=== PATIENT | female | born 1990 | race Caucasian/White ===

== ENCOUNTER 2022-07-30 11:22 | Outpatient (CLI) | payer OTHER, SELFPAY | END 2022-07-30 11:23 | disposition home or self-care (01) | LOC: NFLDREF 08-02 14:05 | PROVIDERS: Visit Provider Advanced Practice Midwife | DX: Z34.91 Encounter for supervision of normal pregnancy, unspecified, first trimester (principal) | CPT/HCPCS: 86592; 86703; 86762; 86787; 86803; 86850; 86900; 86901; 87086; 87340 ==

== ENCOUNTER 2022-10-14 13:06 | Outpatient (CLI) | payer OTHER, SELFPAY ==
--- NOTE | 2022-10-14 13:00 | CRLHL7_ITS ---
For Patients: As a result of the Century Cures Act, medical imaging exams and procedure reports are released immediately into your electronic medical record. You may view this report before your referring provider. If you have questions, please contact your health care provider. OB ULTRASOUND 10/14/2022 INDICATION: anatomy. FINDINGS: Single. Position: Vertex. Cervix: Visualized, TA, 4.0 cm. Placenta Position: Posterior, TA. Placenta tip to internal os: 8.2 cm. Umbilical cord: 3-vessel cord. Placental Insertion: Eccentric. Amniotic Fluid: 5.2 cm, SDP (>2<8cm) OBSERVED STRUCTURES: Cerebellum: 2.1 cm, 21 weeks 2 days. Cisterna Magna: 5 mm. Nuchal Fold: 4 mm. Lateral Ventricle: 6 mm. CSP: Observed. Midline Falx: Observed. Choroid Plexus: Observed. Spine: Observed. Stomach: Observed. Abdominal Cord Insertion: Observed. Urinary Bladder: Observed. Kidneys: Observed. Diaphragm: Observed. Nose/Lips: Observed. Orbital view: Observed. Profile: Observed. Upper/Lower Extremities: Observed. Hands/Feet: Observed. 4 Chamber Heart: Observed. LVOT/RVOT/3VV: Observed. Biometry: BPD: 4.9 cm. 21w, 0d, 85 percent. HC: 18.2 cm. 20w, 4d, 69 percent. AC: 15.3 cm. 20w, 3d, 60 percent. FL: 3.2 cm. 19w, 6d, 35 percent. FL/AC ratio: 21 percent. HC/AC ratio: 1.2. EFW: 340 g. Weight: 0 lbs, 12 oz. age by this US: 20w, 4d. CHANCE by this US: 02/27/2023. Percentile by CHANCE: 60 percent. IMPRESSION: Single live intrauterine gestation with no gross anomalies visualized. Brielle Archer M.D. Diagnostic/Breast Radiologist [email or web address] CLAUDIA/roel / DW/Dictated by: Brielle Archer MD @ 10/17/2022 7:19:00 AM DW/Dictated by: Brielle Archer MD @ 10/17/2022 7:19:00 AM (Electronically Signed)
== END 2022-10-14 13:07 | disposition home or self-care (01) ==
LOC: US 13:07
PROVIDERS: Visit Provider Advanced Practice Midwife
DX: Z34.92 Encounter for supervision of normal pregnancy, unspecified, second trimester (principal); Z3A.20 20 weeks gestation of pregnancy
CPT/HCPCS: 76805

== ENCOUNTER 2022-12-14 10:01 | Outpatient (CLI) | payer OTHER, SELFPAY | END 2022-12-14 10:02 | disposition home or self-care (01) | PROVIDERS: Visit Provider Advanced Practice Midwife | DX: Z34.92 Encounter for supervision of normal pregnancy, unspecified, second trimester (principal) | CPT/HCPCS: 86592 ==

== ENCOUNTER 2022-12-29 08:22 | Outpatient (CLI) | payer OTHER, SELFPAY | END 2022-12-29 08:23 | disposition home or self-care (01) | LOC: NFLDREF 01-01 09:35 | PROVIDERS: Visit Provider Advanced Practice Midwife | DX: O99.810 Abnormal glucose complicating pregnancy (principal) | CPT/HCPCS: 82951; 82952 ==

== ENCOUNTER 2023-02-03 15:10 | Outpatient (CLI) | payer OTHER, SELFPAY ==
[2023-02-04 15:51] LABS: Strep B DNA Probe Negative (Negative)
[2023-02-04 15:52] LABS: Strep B Susceptibility Needed? No
== END 2023-02-03 15:11 | disposition home or self-care (01) ==
LOC: NFLDREF 15:10
PROVIDERS: Visit Provider Advanced Practice Midwife
DX: Z34.93 Encounter for supervision of normal pregnancy, unspecified, third trimester (principal)
CPT/HCPCS: 87081; 87653

== ENCOUNTER 2023-03-10 12:59 | Outpatient (CLI) | payer OTHER, SELFPAY ==
--- NOTE | 2023-03-10 13:00 | CRLHL7_ITS ---
For Patients: As a result of the Century Cures Act, medical imaging exams and procedure reports are released immediately into your electronic medical record. You may view this report before your referring provider. If you have questions, please contact your health care provider. INDICATION: Post-dates. Forty-one weeks 0 days. Technique: Grayscale and Doppler images from biophysical profile submitted. FINDINGS: breathing movements: 2 Gross body movements: 2 tone: 2 Amniotic fluid volume: 2 Total: 8/8 Amniotic Fluid Index: 10.6 cm. Heart rate is 165 beats per minute. Vertex presentation. IMPRESSION: Normal biophysical profile score of 8/8. Dictated by Mike Arango MD @ 03/10/2023 3:03:12 PM (Electronically Signed)
[2023-03-13 11:25] VITALS: RESP 18; TEMP 36.6
== END 2023-03-10 13:00 | disposition home or self-care (01) ==
LOC: US 13:00
PROVIDERS: Visit Provider Advanced Practice Midwife
DX: O48.0 Post-term pregnancy (principal)
CPT/HCPCS: 76819

== ENCOUNTER 2023-03-13 10:27 | Outpatient (CLI) | payer OTHER, SELFPAY ==
[2023-03-13 10:43] VITALS: BP 133/79; PULSE 84
[2023-03-13 10:46] VITALS: PULSE 87; O2SAT 97
[2023-03-13 10:51] VITALS: PULSE 89; O2SAT 97
[2023-03-13 10:56] VITALS: PULSE 80; O2SAT 98
[2023-03-13 11:01] VITALS: PULSE 91; O2SAT 97
[2023-03-13 11:06] VITALS: PULSE 77; O2SAT 98
[2023-03-13 11:29] LABS: Amnisure Rom* Negative
--- NOTE | 2023-03-13 12:38 | PC.OBNST ---
NST Note NST Note Start: 03/13/23 12:37 Freq: ONCE Status: Active Protocol: Document 03/13/23 11:37 RADHA (Rec: 03/13/23 12:38 [email or web address] [id number]) NST Note 2 Para (# of births) 1 EDC 03/03/23 Gestational Age In Weeks & Days 41 Weeks & 3 Days Patient Presented with Complaint(s) of Leaking fluid Reactive Yes Appropriate for Gestational Age Yes RN Norma Chatman RN Date 03/13/23 Reactive Yes Appropriate for Gestational Age Yes KHADAR Marti RN Date 03/13/23 OB NST charge Yes Complete NST Note via Write Note Yes The provider's electronic signature indicates the NST is reactive/appropriate for gestational age. *Note to provider: If an addendum is required, open the patient's chart and click on the note under the Nurse/Allied Health tab.
== END 2023-03-13 11:45 | disposition home or self-care (01) ==
LOC: OB OUT 10:27 → OB 10:27
PROVIDERS: Visit Provider Advanced Practice Midwife
DX: O47.1 False labor at or after 37 completed weeks of gestation (principal); Z3A.41 41 weeks gestation of pregnancy
CPT/HCPCS: 59025; 84112; G0463

== ENCOUNTER 2023-03-15 23:16 | Inpatient (IN) | payer OTHER, SELFPAY ==
[2023-03-15 23:24] VITALS: BMI 28.4
[2023-03-15 23:25] VITALS: BP 132/90; PULSE 93
[2023-03-15 23:29] VITALS: PULSE 69; TEMP 37.1; O2SAT 98
[2023-03-16] VITALS (19 sets, daily range): BP systolic 113–190; BP diastolic 64–104; PULSE 80–113; RESP 16–18; TEMP 36.4–37.2; O2SAT 96–98
[2023-03-16] MEDS: OXYTOCIN 10 UNIT/ML INJ IM (00:39)
--- NOTE | 2023-03-16 00:59 | P.LDBA_ITS ---
Subjective History of Present Illness Date Seen: 03/16/23 Specific Issues/Plans : Rodney Alba gender H&P done by Vivien Davis CNM on 02/10/23 1. Extended family hx of muscular dystropy for both Brisa and her . They have not personally been tested but believe their parents have and are not carriers. 2. Abnormal 1 hr (142). 3 hr ordered:passed, all values WNL 3. Hx of anxiety previous child in NICU for blood sugar problems pt feels she probably had undiagnosed PP anxiety from this *Pap PP (due 04/17) COVID: first series + Booster 01/26/2023 Flu: 12/14/22 TDAP:12/29/22 RSV: 01/12/2023 32 week PHQ/NICKY: 01/12/2023 Comments: Brisa is being admitted to Labor and Delivery for active labor. She is a 32 year old G 2 P 1 at?41.6 weeks gestation. Her full history and physical was dictated by Vivien Davis on 02/10/23. Please see this for details. She was seen in the office today and had a membrane sweep done. Contractions started around 1500. She states SROM, clear fluid at 2200, at which point contractions became much more intense. ? She is coping well with labor pain/contractions. Her partner is with her for support. She is planning an unmedicated , open to waterbirth. OB - Problem Based A/P Additional Plan (1) Supervision of other normal : Status: Acute (2) SROM (spontaneous rupture of membranes): Status: Acute (3) Active labor at term: Status: Acute Plan Assessment:?? at 41.6 weeks gestation?? GBS negative Patient is coping well with challenges of labor.?? Labor type: Spontaneous, Active labor? complicated by: -abnormal 1 hr GCT, passed 3 hr -Hx of PP anxiety Plan:?? * Admit to L & D? * IV access: not needed at this time * Monitoring: intermittent per protocol * Candidate for analgesia of choice.? Planning non pharmacologic methods for pain management * Considering waterbirth.? Consent signed and Hep C negative * Expectant management at this time * Anticipate progress to NVD Delivery/Labor/Induction Plan Plan: expectant management OB Exam Physical Exam Vital signs: Temp Pulse BP Pulse Ox 98.7 F 113 H 142/97 H 98 03/15/23 23:29 03/16/23 00:49 03/16/23 00:49 03/15/23 23:29 Narrative: VSS, afebrile? General Appearance:? Calm, cooperative.? No acute distress.? Normal affect.? Psychiatric Exam: Alert and oriented, appropriate affect? HEENT: normocephalic, neck supple, full ROM? Respiratory:? Symmetrical chest wall movement.? Normal respiratory effort.? Abdomen: Gravid, non tender? Extremities:? normal and trace edema? Skin: warm, dry.??? Ctx:? Q 1-2 min apart.? Moderate?- Strong? FHTs:? Baseline: 125.? Variability: moderate.?? Accels: present.??? Decels:? none.? SVE: deferred initial on admit per pt request. Shortly after noted to be complete. ? Membranes: ? SROM,? clear fluid, X 2 hours? Detailed Labor and Delivery Exam Patient Gravid: Yes
--- NOTE | 2023-03-16 00:59 | W.PM.OBVAGDE ---
OB Procedure Vag Delivery Mother Details Mother Details: The patient is a 32 year-old, 2, now Para 2, admitted on 03/15/23 at 41.5 Days gestation. Delivery occurred 03/16/23 at 0036. : 2 Para: 2 Weeks Gestation: 41.6 Admission Date: 03/15/23 Additional Details Amniotic Membrane Status: SROM Amniotic Membrane Rupture Date: 03/15/23 Amniotic Membrane Rupture Time: 22:00 Amniotic Membrane Fluid Description: Clear Analgesia/Anesthesia Type: None Waterbirth: No Pitcoin: No (PP only for AMTSL) Intrapartal Events: None Labor Onset: 22:00 Complete: 00:01 Pushin:01 Heart: heart tones during second stage were WNL per doppler by service station console operator Details Delivery Date: 03/16/23 Delivery Time: 00:36 Route of delivery: Gender: Male Viability: Alive; Heart Rate Present Position at Delivery: OA Delivery Details: As CNM arrivied, pt was noted to be complete and spontaneously pushing w/ ctx. She continued to push in good control on hands and knees leaning on the bed. Declined to move to tub for a waterbirth. ? Spontaneous vaginal delivery at 0036 of?a viable?male infant.??Delivered in vertex OA position.??Right hand noted to be up around the neck after delivery of head. Shoulders delivered easily.? Spontaneous cry noted.??Infant placed on maternal abdomen.??Cord?was clamped and cut after a 5+ minute delay.? Shoulder dystocia: no? Nuchal cord: no? Meconium stained?fluid: no? Water : no? ? ? 8 at 1 minute and 9 at 5 minutes.? ? Placenta delivered spontaneously and?complete?at 0048 with a?3 vessel?cord.?? Bleeding controlled with fundal massage and?pitocin?for AMTSL.? ? Mother and were stable after delivery.? ? Lacerations:? ??1st degree laceration, not bleeding, not repaired? ? Bleeding?post delivery?was: minimal. ?The fundas was firm to palpation.? Blood loss: 75?mL.? Blood loss measurement type: QBL? ? ? Sponge,?lap?and needles counts are correct.? Mother and infant were stable after delivery.? 1 Minute Interval Total Score: 8 5 Minute Interval Total Score: 9 Additional Details Shoulder Dystocia: No Placenta Delivery Time: 00:48 Placental Delivery Description: Spontaneous Procedure Done: Global Blood Loss: 75 Laceration: Perineal - 1st Degree (not repaired) Blood Loss Measurement Type: QBL Bakri Used: No Sponge/Need Count Correct: Yes Cord Vessel Description: 3 Vessels Event Summary Status: Mother and were stable after delivery. Disposition: floor
[2023-03-16] MEDS: IBUPROFEN 600 MG TABLET PO ×4 (01:55→21:40)
[2023-03-16] MEDS: ACETAMINOPHEN 500 MG TABLET 1000 MG PO ×3 (04:51→16:48)
[2023-03-16] MEDS: DOCUSATE SODIUM 100 MG CAPSULE PO (07:59)
[2023-03-17 00:24] VITALS: BP 109/71; PULSE 87; RESP 18; TEMP 36.6; O2SAT 98
[2023-03-17] MEDS: ACETAMINOPHEN 500 MG TABLET 1000 MG PO ×4 (03:01→23:13)
[2023-03-17] MEDS: IBUPROFEN 600 MG TABLET PO ×3 (04:03→17:13)
[2023-03-17 07:16] VITALS: BP 118/72; PULSE 74; RESP 16; TEMP 36.6; O2SAT 98
--- NOTE | 2023-03-17 07:21 | PM.OBPNVD1 ---
OB - PN:Subj Subjective Date Seen: 03/17/23 Narrative: Brisa is a 32 y.o. G 2 P 2 who was admitted to L & D for spontaneous onset of labor. ?She had a NVD that was uncomplicated. The patient feels well. ?The pain is well controlled with current medications. ?She has no new complaints. ?She is breast feeding and reports things are going ok. She desires to see today. the patient has done well.? Vitals have been stable.? She has remained afebrile.? Has a good appetite, is tolerating a general diet. ?She is voiding without difficulty.? She is passing gas and has not had a bowel movement.? She is ambulating and denies any dizziness.? Has small amount of rubra lochia. Problems: elevated BP without diagnosis of HTN OB - PN: Obj Exam Physical Exam: Vital signs: Temp Pulse Resp BP Pulse Ox O2 Del Method 97.9 F 87 18 109/71 98 Room Air 03/17/23 00:24 03/17/23 00:24 03/17/23 00:24 03/17/23 00:24 03/17/23 00:24 03/17/23 00:24 Narrative: GENERAL APPEARANCE:? normal affect, alert, no distress MOOD:? appropriate CHEST:? clear to auscultation HEART:? regular rate and rhythm ABDOMEN:? soft, non-tender the uterine fundus is 2 below Umbilicus, Midline and is appropriate for the stage of recovery. PERINEUM:? mild edema of the perineum, there is a Perineal Laceration,?1st degree, that is healing well. EXTREMITIES:? normal and no edema OB - PN: A/P Delivery Assessment and Plan (1) care and examination immediately after delivery: Status: Acute (2) Lactating mother: Status: Acute (3) Elevated blood pressure reading without diagnosis of hypertension: Status: Acute Plan day: 1 Plan: routine care Comments: Routine care , may see if needed Elevated BP without diagnosis of HTN Had a few initially around time of delivery, has been normotensive since
[2023-03-17] MEDS: DOCUSATE SODIUM 100 MG CAPSULE PO (09:16)
[2023-03-17] MEDS: CALCIUM CARBONATE 500 MG CHEW PO (14:09)
[2023-03-17 15:01] VITALS: BP 117/75; PULSE 87; RESP 16; TEMP 36.7; O2SAT 97
[2023-03-17 23:14] VITALS: BP 131/84; PULSE 87; RESP 14; TEMP 36.7; O2SAT 98
--- NOTE | 2023-03-18 07:32 | P.DS_ITS ---
DS: Providers Provider Date Seen: 03/18/23 Date of admission: 03/15/23 23:16 Primary care physician: Not a Local Provider Admitting Clinician: Jaimee Mark CNM Attending Physician on discharge: Jaimee Mark CNM Date of Discharge: 03/18/23 DS: Diagnosis Discharge Diagnosis (1) Elevated blood pressure reading without diagnosis of hypertension: Status: Acute (2) Lactating mother: Status: Acute (3) care following vaginal delivery: Status: Acute Exam Narrative: Exam Narrative: GENERAL APPEARANCE:? normal affect, alert, no distress? MOOD:? appropriate? CHEST:? clear to auscultation and percussion? HEART:? regular rate and rhythm? ABDOMEN:? soft, non-tender the uterine fundus is 2 cm Below Umbilicus, Midline and is appropriate for the stage of recovery. ? PERINEUM:? mild edema of the perineum, there is a 1st degree that is healing well.? EXTREMITIES:? normal and no edema? Patient has no complaints? No active bleeding?? Doing well? She is requesting discharge home.? Const: Vital Signs, click to edit/add: Vital Signs - 24 hr 03/17/23 15:01 03/17/23 23:14 Temperature 98.0 F 98.1 F Pulse Rate [Pulse Oximeter] 87 87 Respiratory Rate 16 14 Blood Pressure [Le ft Arm] 117/75 131/84 Pulse Oximetry 97 98 Oxygen Delivery Me thod Room Air Room Air Documenting provider has reviewed patient's vital signs: yes OB - DS: Summary Hospital Course Hospital Course: The patient is a 32 year old G 2 P 2 at 41.6 weeks gestation that was admitted to the Center on 03/15/23 for SROM. She had an uncomplicated vaginal delivery. She delivered a viable male . She is breast feeding which was initially difficult but is improving. the patient has done well. She is planning NFP for control. She was encouraged to wait 12-18 months between pregnancies and the risks of closely spaced pregnancies were discussed. Peripartum Data Infant delivery method: Vaginal Laceration description: Perineal - 1st Degree Episiotomy description: None complications: none [place] Infant Gender: Male Discharge Plan: Home Status at Discharge Functional status at discharge: independent ambulation Overall status at discharge: patient is progressing back to baseline Time Spent with Patient Time attestation: Total time spent providing and/or coordinating discharge services: Discharge Plan Discharge Disposition: Home, Self-Care Date of Admission: 03/15/23 23:16 Attending Provider on Discharge: Alma Arzate Primary Care Provider: Provider,Not a Local Condition: Stable Anticipated Discharge Date/Time: 03/18/23 10:00 Discharge Medications: New docusate sodium 100 mg Capsule 100 mg PO DAILY Qty: 90 0RF Rx Instructions: Take 1-2 tablets daily as needed for constipation. ibuprofen 600 mg Tablet 600 mg PO Q6H PRNQty: 30 0RF Continued prenat.vits,joy,[id number] Tablet 1 tab PO QDAY magnesium 250 mg tablet 250 mg PO QDAY Hold Instructions: patient requesy Discontinued aspirin [Adult Low Dose Aspirin] 81 mg tablet,delayed release (DR/EC) 81 mg PO QDAY Discharge Orders: Discharge Order (Routine); Ordered 03/18/23 Ordered By: Alma Arzate Patient Education: OB Vaginal/Breast Feeding Additional Instructions: Discharge instructions were reviewed with the patient including signs and symptoms of infection and home going medications.? Lifting Restrictions: 20 pounds for 6? weeks? ?? Do not drive while taking narcotic pain meds.? Off Work or School for 6 weeks.? ?? Symptoms to report to doctor:? -Bleeding that saturates more than one pad per hour? -Passing clots larger than the size of a golf ball? -Pain not relieved by prescribed medication? -Fever above 100.4 degrees Fahrenheit? -A foul vaginal odor? -Difficulty in emotions, mood and functions? -Thoughts of hurting yourself and/or ? -Painful, reddened area in your breast? -Any drainage, redness or tenderness in your IV/epidural site? -Severe headache that doesn't improve after taking medications? -Changes in vision, including temporary loss of vision, blurred vision, and/or light sensitivity? -Upper abdominal pain (usually under ribs on the right side)? -Decrease in urination or painful, frequent urinating? -Chest pain? -Shortness of breath? -Tenderness or pain with redness and/swelling in the calf(s) of your leg? ?? Follow Up in clinic in 2 and 6 weeks.? ?? consultation services are available to all mothers and babies for the first year after delivery.? To make an appointment, please call [phone].? Activity Level: Activity as Tolerated Discharge Diet: Regular Follow Up Appointments: [facility] [Provider Group] Provider,Not a Local [Primary Care Provider] - Forms: [employer] Info Instructions
[2023-03-18] MEDS: DOCUSATE SODIUM 100 MG CAPSULE PO (08:54)
[2023-03-18 09:27] VITALS: BP 122/84; PULSE 92; RESP 16; TEMP 36.8; O2SAT 97
[2023-03-18] MEDS: IBUPROFEN 600 MG TABLET PO (09:30)
== END 2023-03-18 10:35 | disposition home or self-care (01) | DRG 807 ==
LOC: OB OUT 23:16 → OB 23:17
PROVIDERS: Admitting Provider Advanced Practice Midwife; Visit Provider Advanced Practice Midwife
DX: O48.0 Post-term pregnancy (principal); Z37.0 Single live birth; O70.0 First degree perineal laceration during delivery; R03.0 Elevated blood-pressure reading, without diagnosis of hypertension; Z3A.41 41 weeks gestation of pregnancy
CPT/HCPCS: A9270; J2590

== ENCOUNTER 2023-03-20 15:44 | Emergency (ER) | payer OTHER, SELFPAY ==
[2023-03-20] VITALS (18 sets, daily range): BP systolic 126–138; BP diastolic 84–85; PULSE 71–98; RESP 18; TEMP 36.5; O2SAT 96–99; BMI 25.1
--- NOTE | 2023-03-20 15:57 | ED_ITS ---
HPI - General Adult General Date Seen: 03/20/23 Chief complaint: Hypertension Stated complaint: high blood pressure Time Seen by Provider: 03/20/23 15:50 History of Present Illness HPI narrative: This is a very pleasant generally healthy 32-year-old female presenting to the ER today with her and infant son for evaluation of high blood pressure and headache. She does not have any personal history of gestational hypertension, preeclampsia, eclampsia. She does have family members who have had the clamps yeah. Patient notes that she did have mildly elevated blood pressure readings during the last week or so and while she was in the hospital delivering her baby. Looks like blood pressure was 142/97 around the time of delivery. Follow-up blood pressures were about 131/84 on her discharge summary. She delivered on Wednesday and was discharged on Wednesday. She has been at home. She has been feeling a little bit off for the past couple of days. No definite symptoms just possible fatigue and a mild headache. She has been taking Tylenol and ibuprofen for that. Last night she had a little bit of shortness breath that came and went after a minute or so. Today she has been feeling a little bit run down. No abdominal pain. No nausea. Urination has been normal. She has a mild headache. No blurry vision. No diplopia. No focal numbness or tingling in her arms or legs. No swelling in her feet but she does have a little bit of swelling in her hands. She has mentum monitor blood pressure at home. She measured her blood pressure couple times last night and again today. It was initially 134, then 136, then 138 systolic. She called her medical device engineer, who instructed to come here to the ER. Related Data Home Medications Medication Instructions Recorded Confirmed prenat.vits,joy,[id number] 1 tab PO QDAY 07/23/22 03/20/23 magnesium 250 mg tablet 250 mg PO QDAY 02/10/23 03/20/23 Previous Rx's Medication Instructions Recorded docusate sodium 100 mg capsule 100 mg PO DAILY #90 caps 03/18/23 ibuprofen 600 mg tablet 600 mg PO Q6H PRN #30 tabs 03/18/23 Allergies Allergy/AdvReac Type Severity Reaction Status Date / Time No Known Drug Allergies Allergy Verified 03/15/23 23:21 PFSH PFS Surgical History (Updated 07/23/22 @ 09:49 by Alma Arzate CNM) [place] teeth extracted ?K08.409 - Partial loss of teeth, unspecified cause, unspecified class (ICD- 10) Hx of tonsillectomy ?Z90.89 - Acquired absence of other organs (ICD-10) Family History (Updated 07/23/22 @ 09:51 by Alma Arzate CNM) Mother Preeclampsia Skin cancer High blood pressure Father Parkinson disease Social History (Updated 07/24/22 @ 13:20 by Alma Arzate CNM) Narrative: SOCIAL 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 Partner: Rodney - project landscape architect - works remotely Lives with: and son Pets: 2 cats Abuse: Denies past, partner present Special Diet: Denies Ok with a blood transfusion: yes Culture or oriental orthodox beliefs: denies RISK FACTORS Exercise Times/wk: walks 4 times per week Depression/Anxiety: denies NICKY: 3 PHQ 9: 6 Seat Belt Use: Routinely Smoking: Denies past/present Alcohol/day: Denies while Caffeine: 1 cups coffee per day Drug Use: Denies past/present Chicken Pox: Yes as a child MRSA: Denies What is your current living situation?: I presently have a place to live Problems where you live: no known problems In the past 12 months, utilities in danger of being shut off: no In past 12 months, lack of transportation kept you from medical appts, meetings, work, or getting things needed for daily living: no In the past 12 mos, have been you worried that your food would run out before you had money to buy more?: never true In the past 12 mos, the food you bought just didn't last and you didn't have money to buy more?: never true Smoking Status: Never smoker How often does anyone, including family, friends and others, physically hurt you : never How often does anyone, including family, friends and others, insult or talk down to you: never How often does anyone, including family, friends and others, threaten you with harm: never How often does anyone, including family, friends and others, scream or curse at you: never Little interest or pleasure in doing things: not at all Feeling down, depressed, or hopeless: not at all Exam Narrative: Exam Narrative: Constitutional: Appears well-developed and well-nourished. Alert. Conversant. Non toxic. HENT: Head: Atraumatic. No depressed skull fracture, Raccoon Eyes, Peters's sign, or hemotympanum. Face normal. Nose: Nose normal. Mouth/Throat: Oral mucosa is clear and moist. no trismus. Pharynx normal. Tonsils symmetric. No tonsillar enlargement, erythema, or exudate. Eyes: Conjunctivae normal. EOM normal. Pupils equal, round, and reactive to light. No scleral icterus. Neck: Normal range of motion. Neck supple. No tracheal deviation present. No JVD Cardiovascular: Normal rate, regular rhythm. No gallop. No friction rub. No murmur heard. Symmetric radial artery pulses Pulmonary/Chest: Effort normal. No stridor. No respiratory distress. No wheezes. No rales. No rhonchi . No tenderness. Abdominal: Soft. Bowel sounds normal. No distension. No HSM. No mass. No tenderness. No rebound. No guarding. Musculoskeletal: RUE: Normal range of motion. No tenderness. No deformity LUE: Normal range of motion. No tenderness. No deformity RLE: Normal range of motion. No edema. No tenderness. No deformity LLE: Normal range of motion. No edema. No tenderness. No deformity Neurological: Mental status normal. Attention normal. Alert and oriented x3. GCS 15. Memory normal. Speech fluent. Cognition normal. Cranial Nerves intact II-XII except I did not formally test gag or visual acuity. EOMI. Palate elevates symmetrically and tongue protrudes in the midline. Strength: 5/5 trapezius on the right and left 5/5 deltoid on the right and left 5/5 biceps on the right and left 5/5 triceps on the right and left 5/5 commercial print salesman on the right and left 5/5 thumb opposition on the right and le ft 5/5 finger abduction on the right and le ft 5/5 hip flexors (L3) on the right and le ft 5/5 quadriceps (L4) on the right and lef t 5/5 tibialis anterior on the right and l eft 5/5 EHL (L5) on the right and left 5/5 gastrocnemius (S1) on the right and left 5/5 hamstring on the right and left Sensation intact to light touch in both upper extremities (C4-T1) Sensation intact to light touch in Both lower extremities (L4-S1). coordination normal. Gait normal. Skin: Skin is warm and dry. No rash noted. No pallor. Normal capillary refill. Psychiatric: Normal mood. Normal affect. Const: Vital Signs, click to edit/add: Vital Signs - 24 hr 03/20/23 15:48 03/20/23 15:54 03/20/23 15:55 Temperature 97.7 F Pulse Rate Pulse Rate [Pulse Oximeter] 98 Respiratory Rate 18 Blood Pressure Blood Pressure [Ri ght Upper Arm] 138/85 Pulse Oximetry 98 98 98 Oxygen Delivery Me thod Room Air 03/20/23 16:00 03/20/23 16:02 03/20/23 16:15 Temperature Pulse Rate Pulse Rate [Pulse Oximeter] Respiratory Rate Blood Pressure Blood Pressure [Ri ght Upper Arm] Pulse Oximetry 98 98 99 Oxygen Delivery Me thod 03/20/23 16:30 03/20/23 16:35 03/20/23 16:46 Temperature Pulse Rate Pulse Rate [Pulse Oximeter] Respiratory Rate Blood Pressure Blood Pressure [Ri ght Upper Arm] Pulse Oximetry 99 99 99 Oxygen Delivery Me thod 03/20/23 17:29 03/20/23 17:30 03/20/23 17:32 Temperature Pulse Rate Pulse Rate [Pulse Oximeter] Respiratory Rate Blood Pressure Blood Pressure [Ri ght Upper Arm] Pulse Oximetry 97 96 97 Oxygen Delivery Me thod 03/20/23 17:33 03/20/23 17:34 03/20/23 17:45 Temperature Pulse Rate 81 Pulse Rate [Pulse Oximeter] Respiratory Rate Blood Pressure Blood Pressure [Ri ght Upper Arm] Pulse Oximetry 97 97 96 Oxygen Delivery Me thod 03/20/23 18:00 03/20/23 18:02 03/20/23 18:03 Temperature Pulse Rate 71 71 72 Pulse Rate [Pulse Oximeter] Respiratory Rate Blood Pressure 126/84 Blood Pressure [Ri ght Upper Arm] Pulse Oximetry 97 97 97 Oxygen Delivery Me thod Course Vital Signs Vital signs: Initial Vital Signs Temperature 97.7 F 03/20/23 15:48 Temperature Source Temporal Artery Scan 03/20/23 15:48 Pulse Rate 98 03/20/23 15:48 Respiratory Rate 18 03/20/23 15:48 Blood Pressure 138/85 03/20/23 15:48 Blood Pressure Mean 102 03/20/23 15:48 Blood Pressure Position Supine 03/20/23 15:48 Pulse Oximetry 98 03/20/23 15:48 Oxygen Delivery Method Room Air 03/20/23 15:48 Vital Signs Temperature 97.7 F 03/20/23 15:48 Pulse Rate 98 03/20/23 15:48 Respiratory Rate 18 03/20/23 15:48 Blood Pressure 138/85 03/20/23 15:48 Pulse Oximetry 98 03/20/23 15:48 Oxygen Delivery Method Room Air 03/20/23 15:48 Temperature 97.7 F 03/20/23 15:48 Pulse Rate 72 03/20/23 18:03 Respiratory Rate 18 03/20/23 15:48 Blood Pressure 126/84 03/20/23 18:02 Pulse Oximetry 97 03/20/23 18:03 Oxygen Delivery Method Room Air 03/20/23 15:48 Medical Decision Making MDM Narrative Medical decision making narrative: This is a very pleasant 32-year-old female who is 5 days . She i s sent to the ER today by her nurse medical device engineer for evaluation of mild headache, fatigue, in the setting of elevated blood pressure readings at home. It sounds like her pre blood pressure is always in the low normal range, less than 110 systolic but she has been more in the 130s systolic since she was in the hospital for delivery. She has a very mild headache without any other visual symptoms, nausea, or any focal neurologic deficits. Concern here is for possible gestational hypertension, preeclampsia, HDL LBP syndrome, or other complication of gestational hypertension. Laboratory workup is reassuring save for very mildly abnormal transaminases. AST 44 and ALT are 41. No previous baseline for comparison. No evidence for protein urea, renal failure, low platelets. Hemoglobin is mildly anemic, consistent with recent delivery. Discussed with OB who recommends careful monitoring at home and follow-up in clinic within two days, on Wednesday. She is not febrile. No head trauma. No associated fever to suggest meningitis as a cause for her headache. At this point without any other neurologic deficits or visual disturbance or nausea, normal mental status and normal neuro exam, low suspicion for intracranial catastrophe such as intracranial hemorrhage, dural sinus thrombosis. Would hold off on advanced imaging for now. I had a detailed discussion with the patient and her about the lab findings and recommendations from OB. Discussed precautions for return to the ER especially with worsening headache, visual symptoms, nausea, abdominal pain, trouble breathing, fever, worsening edema, or blood pressure measurements become more elevated. Patient and her are agreeable. They are vigilant and will monitor carefully for any symptoms and return right away. Lab Data Labs: Lab Results 03/20/23 03/20/23 Range/Units 16:20 16:45 WBC 10.57 (4.50-11.00) K/uL RBC 3.62 L (4.00-5.20) m/uL Hgb 11.1 L (12.0-16.0) gm/dL Hct 34.2 (33.0-51.0) % MCV 95 (80-100) fL MCH 31 (26-34) pg MCHC 33 (32-36) gm/dL RDW Coeff of Flory 13.4 (11.5-15.5) % Plt Count 279 (140-440) K/uL Neut % (Auto) 74.5 H (42.0-72.0) % Lymph % (Auto) 17.7 L (20-44) % [place] % (Auto) 4.9 (0.0-11.0) % Eos % (Auto) 1.2 (0.0-7.0) % Baso % (Auto) 0.2 (0.0-3.0) % Neut # (Auto) 7.90 H (1.7-7.0) K/uL Lymph # (Auto) 1.90 (0.90-2.90) K/uL [place] # (Auto) 0.50 (0.00-0.90) K/UL Eos # (Auto) 0.13 (0.00-0.50) K/uL Baso # (Auto) 0.02 (0.00-0.30) K/uL Abs Immat Gran (auto) 0.16 (0.00-0.30) K/uL Imm/Tot Granulo (auto) 1.5 % Sodium 133 L (135-149) mmol/L Potassium 4.6 (3.6-5.1) mmol/L Chloride 104 (96-114) mmol/L Carbon Dioxide 21 (20-32) mmol/L Anion Gap 8 (7-15) mEq/L BUN 5 (5-24) mg/dL Creatinine 0.5 (0.5-1.5) mg/dL Estimated Creat Clear 162.95 Estimated GFR 128 ml/min Glucose 96 (60-115) mg/dL Lactate 1.1 (0.5-1.9) mmol/L Calcium 8.8 (8.4-10.6) mg/dL Total Bilirubin < 0.1 L (0.1-1.5) mg/dL AST 44 H (12-35) U/L ALT 41 H (4-35) U/L Alkaline Phosphatase 115 (40-150) U/L Total Protein 6.7 (6.0-8.3) g/dL Albumin 3.8 (3.3-5.0) g/dL Urine Color Yellow (Yellow) Urine Appearance Clear (Clear) Urine pH 7.0 (5.0-8.5) Ur Specific [place] 1.010 (1.000-1.030) Urine Protein Negative (Negative) Urine Glucose (UA) Negative (Negative) Urine Ketones Negative (Negative) Urine Blood 1+ A (Negative) Urine Nitrite Negative (Negative) Urine Bilirubin Negative (Negative) Urine Urobilinogen 0.2 (0.2-1.0) Ur Leukocyte Esterase Trace A (Negative) Urine RBC 0-2 (0-2) Urine WBC 0-2 (0-5) Ur Squamous Epith Cells None (None-Few) Urine Bacteria None (None) Discharge Plan Discharge Clinical Impression: Abnormal LFTs, Headache, Elevated blood pressure reading without diagnosis of h ypertension Patient Disposition: Home, Self-Care Condition: Stable Instructions: Acute Headache (DC) Additional Instructions: As we discussed, please return to the ER if you have any concerns, especially with worsening headache, visual symptoms (blurry vision, flashing lights, double vision), nausea, abdominal pain, trouble breathing, fever, worsening swelling in your hands or feet, or blood pressure measurements become more elevated for. Be sure to follow-up with the OB clinic on Wednesday for a recheck, even if you are getting better. Activity Level: No Restrictions Discharge Diet: Regular Prescriptions: No Action prenat.vits,joy,[id number] Tablet 1 tab PO QDAY magnesium 250 mg tablet 250 mg PO QDAY Hold Instructions: patient requesy docusate sodium 100 mg Capsule 100 mg PO DAILY Qty: 90 0RF Rx Instructions: Take 1-2 tablets daily as needed for constipation. ibuprofen 600 mg Tablet 600 mg PO Q6H PRNQty: 30 0RF Follow Up/Referrals: Provider,Not a Local [Primary Care Provider] - Stand Alone Forms: MyHealth Info Instructions
[2023-03-20 16:31] LABS: Appearance Urine Clear (Clear); Bilirubin Urine Negative (Negative); Blood Urine 1+ (Negative); Color Urine Yellow (Yellow); Glucose Urine Negative (Negative); Ketones Urine Negative (Negative); Leukocyte Esterase Urine Trace (Negative); Nitrite Urine Negative (Negative); Protein Urine Negative (Negative); Urobilinogen Urine 0.2 (0.2-1.0)
[2023-03-20 16:49] LABS: RBC Urine 0-2 (0-2); WBC Urine 0-2 (0-5)
[2023-03-20 16:53] LABS: Lactate* 1.1 mmol/L (0.5-1.9)
[2023-03-20 16:54] LABS: Basophils Absolute Auto 0.02 K/uL (0.00-0.30); Basophils Percent Auto 0.2 % (0.0-3.0); Eosinophils Absolute Auto 0.13 K/uL (0.00-0.50); Eosinophils Percent Auto 1.2 % (0.0-7.0); Hematocrit 34.2 % (33.0-51.0); Hemoglobin* 11.1 gm/dL (12.0-16.0); Immature Granulocytes Abs Auto 0.16 K/uL (0.00-0.30); Immature Granulocytes Pct Auto 1.5 %; Lymphocytes Percent Auto 17.7 % (20-44); Mean Corpuscular HGB Conc 33 gm/dL (32-36); Mean Corpuscular Hemoglobin 31 pg (26-34); Mean Corpuscular Volume 95 fL (80-100); Monocytes Percent Auto 4.9 % (0.0-11.0); Neutrophils Percent Auto 74.5 % (42.0-72.0); Platelet Count* 279 K/uL (140-440); RDW Coefficient of Variation % 13.4 % (11.5-15.5); Red Blood Count 3.62 m/uL (4.00-5.20); White Blood Count* 10.57 K/uL (4.50-11.00)
[2023-03-20 17:01] LABS: Slide Review Reflex No
[2023-03-20 17:23] LABS: Albumin* 3.8 g/dL (3.3-5.0); Chloride* 104 mmol/L (96-114); Potassium* 4.6 mmol/L (3.6-5.1); Sodium* 133 mmol/L (135-149)
[2023-03-20 17:26] LABS: Alanine Aminotransferase* 41 U/L (4-35); Alkaline Phosphatase* 115 U/L (40-150); Anion Gap 8 mEq/L (7-15); Aspartate Amino Transferase* 44 U/L (12-35); Blood Urea Nitrogen* 5 mg/dL (5-24); Carbon Dioxide* 21 mmol/L (20-32); Creatinine* 0.5 mg/dL (0.5-1.5); Est. Creatinine Clearance* 162.95; Estimated Glomerular Filt Rate 128 ml/min; Glucose* 96 mg/dL (60-115); Total Protein* 6.7 g/dL (6.0-8.3)
[2023-03-20 17:27] LABS: Calcium* 8.8 mg/dL (8.4-10.6)
[2023-03-20 17:28] LABS: Bilirubin Total* < 0.1 mg/dL (0.1-1.5)
== END 2023-03-20 18:12 | disposition home or self-care (01) ==
PROVIDERS: Emergency Provider Emergency Medicine
DX: R51.9 Headache, unspecified (principal); R03.0 Elevated blood-pressure reading, without diagnosis of hypertension; R94.5 Abnormal results of liver function studies
CPT/HCPCS: 36415; 80053; 81001; 83605; 84550; 85025; 87086; 93005; 99284

== ENCOUNTER 2023-03-23 12:48 | Outpatient (CLI) | payer OTHER, SELFPAY | END 2023-03-23 12:49 | disposition home or self-care (01) | PROVIDERS: Visit Provider Advanced Practice Midwife | DX: R79.89 Other specified abnormal findings of blood chemistry (principal) | CPT/HCPCS: 84450; 84460 ==